=== PATIENT | female | born 1940 | race African-American/Black ===

== ENCOUNTER 2017-11-16 09:14 | Emergency (ER) | payer MEDICARE, OTHER ==
[~2017-11-16] VITALS: Ht 157.5 cm; Wt 76.0 kg
[2017-11-16] MEDS ORDERED: POTA10CA42 PO (09:24)
[2017-11-16] MEDS ORDERED: LOSA50TA20 PO (09:24)
[2017-11-16] MEDS ORDERED: LEVO112T2 PO (09:24)
[2017-11-16] MEDS ORDERED: METF500T4 PO (09:24)
[2017-11-16] MEDS ORDERED: WARF-67 PO (09:24)
[2017-11-16] MEDS ORDERED: METO-385 PO (09:24)
[2017-11-16] MEDS ORDERED: TRIA1TAB92 PO (09:27)
[2017-11-16] MEDS ORDERED: DILT240C3 PO (09:27)
[2017-11-16] MEDS ORDERED: DILT240C92 PO (09:27)
[2017-11-16] MEDS ORDERED: FURO20TA4 PO (09:27)
[2017-11-16] MEDS ORDERED: NIAC1000 PO (09:27)
[2017-11-16] MEDS ORDERED: OMEG-118 PO (09:27)
[2017-11-16] MEDS ORDERED: THROMBIN (BOVINE) 5000 UNITS/VIAL TOP ONE (09:45)
[2017-11-16 10:18] LABS: PROTHROMBIN TIME 88.6 sec (9.4-11.6)
[2017-11-16 10:32] LABS: INR 8.5
[2017-11-16] MEDS ORDERED: PHYTONADIONE 5MG TABLET PO ONE (10:45)
[2017-11-16] MEDS ORDERED: PHYTONADIONE 10 MG/10 ML ORALSYR PO SCH (11:00)
[2017-11-16 11:50] VITALS: BP 144/78
== END 2017-11-16 12:11 | disposition home or self-care (01) ==
LOC: SUPCPDRO 09:33 → ER 09:46
DX: R04.0 Epistaxis (principal); R79.1 Abnormal coagulation profile; I48.91 Unspecified atrial fibrillation; E78.00 Pure hypercholesterolemia, unspecified; E05.90 Thyrotoxicosis, unspecified without thyrotoxic crisis or storm; I11.9 Hypertensive heart disease without heart failure; E11.9 Type 2 diabetes mellitus without complications; Z88.8 Allergy status to other drugs, medicaments and biological substances; Z79.01 Long term (current) use of anticoagulants; Z88.0 Allergy status to penicillin
CPT/HCPCS: 36415; 85610; 99283; J3430; J3490

== ENCOUNTER 2022-04-02 13:14 | Emergency (ER) | payer MEDICARE, OTHER ==
[~2022-04-02] VITALS: Ht 167.6 cm; Wt 45.0 kg
[~2022-04-02 13:14] MED LIST: DILT240C92 PO; DILT240C94 PO; FURO20TA4 PO; LEVO112T2 PO; LOSA50TA41 PO; METF-414 PO; METO-385 PO; NIAC1000 PO; OMEG-118 PO; POTA10CA42 PO; TRIA1TAB92 PO; WARF-67 PO
[2022-04-02 13:23] VITALS: BP 121/62
== END 2022-04-02 19:29 | disposition left against medical advice (07) ==
LOC: ER 13:14
DX: Z53.21 Procedure and treatment not carried out due to patient leaving prior to being seen by health care provider (principal)
CPT/HCPCS: 81025; 82962